=== PATIENT | male | born 1950 | race Two or more races ===

== ENCOUNTER 2018-08-31 10:46 | Emergency (ER) | payer OTHER, MEDICAID ==
[~2018-08-31] VITALS: Ht 177.8 cm; Wt 74.8 kg
[~2018-08-31 10:46] MED LIST: ATOR20TA50 PO; LOSA-49 PO
[2018-08-31 11:29] LABS: Urine Bacteria NONE SEEN /hpf (None Seen); Urine Blood 1+ /uL (Negative); Urine Mucus FEW (None Seen); Urine Specific Gravity 1.019 (1.001-1.035); Urine WBC 7 /hpf (0 - 3)
[2018-08-31 12:00] VITALS: BP 140/83
[2018-08-31] MEDS ORDERED: traMADol HCL 50 MG TAB PO ONE (12:00)
== END 2018-08-31 12:25 | disposition home or self-care (01) ==
LOC: ER 10:46
DX: S30.1XXA Contusion of abdominal wall, initial encounter (principal); M54.9 Dorsalgia, unspecified; I10 Essential (primary) hypertension; E78.5 Hyperlipidemia, unspecified; Z98.890 Other specified postprocedural states; V49.88XA Car occupant (driver) (passenger) injured in other specified transport accidents, initial encounter; Y93.89 Activity, other specified; Y92.488 Other paved roadways as the place of occurrence of the external cause; Y99.8 Other external cause status
CPT/HCPCS: 74176; 81001; 93005

== ENCOUNTER 2018-11-02 12:11 | Emergency (ER) | payer OTHER, MEDICAID ==
[~2018-11-02] VITALS: Ht 175.3 cm; Wt 68.5 kg
[2018-11-02] MEDS ORDERED: SODIUM CHLORIDE 0.9% 1,000 ML IV ONE (13:25)
[2018-11-02 15:36] LABS: Basophils # (auto) 0 uL; Basophils % (auto) 0.9 % (0.0-2.0); Eosinophils # (auto) 0.1 uL; Eosinophils % (auto) 3.7 % (0.0-7.0); Hematocrit 41.9 % (41.0-53.0); Lymphocytes # (auto) 0.3 uL; Lymphocytes % (auto) 10.4 % (10.0-50.0); Mean Corpuscular Hemoglobin 30.4 pg (28.0-32.0); Mean Corpuscular Hgb Conc. 33.3 g/dL (32.0-36.0); Mean Corpuscular Volume 91.4 fL (80.0-100.0); Monocytes # (auto) 0.4 uL; Monocytes % (auto) 15.5 % (0.0-12.0); Neutrophils % (auto) 69.5 % (37.0-80.0); Nucleated Red Blood Cells % 0.3 %; Platelet Count (auto) 111 10^3/uL (140-450); Red Blood Cells 4.59 10^6/uL (4.5-5.90); Red Cell Distribution Width 13.4 % (11.8-14.3); White Blood Cell 2.9 10^3/uL (4.4-10.8)
[2018-11-02 15:48] LABS: Chloride 101 mmol/L (98-107); Potassium 4.2 mmol/L (3.5-5.1); Sodium 131 mmol/L (136-145)
[2018-11-02 15:52] LABS: Alanine Aminotransferase 46 U/L (16-61); Anion Gap 8 (5-15); Aspartate Aminotransferase 67 U/L (15-37); BUN/Creatinine Ratio 16.2; Blood Urea Nitrogen 19 mg/dL (7-18); Calcium 8.9 mg/dL (8.5-10.1); Carbon Dioxide 22 mmol/L (21-32); GFR African American 80 mL/min; GFR Non-African American 66 mL/min; Glucose 86 mg/dL (74-106)
[2018-11-02 15:57] LABS: Alkaline Phosphatase 104 U/L (45-117); Bilirubin, Total 0.5 mg/dL (0.2-1.0); Total Protein 8.9 g/dL (6.4-8.2)
[2018-11-02 17:24] LABS: Urine Bacteria NONE SEEN /hpf (None Seen); Urine Blood Negative /uL (Negative); Urine Specific Gravity 1.016 (1.001-1.035); Urine WBC 1 /hpf (0 - 3)
[2018-11-02 17:59] VITALS: BP 120/80
== END 2018-11-02 18:00 | disposition home or self-care (01) ==
LOC: ER 12:11
DX: N20.0 Calculus of kidney (principal); E86.0 Dehydration; E78.5 Hyperlipidemia, unspecified; I10 Essential (primary) hypertension
CPT/HCPCS: 36415; 71045; 74176; 80053; 81001; 84484; 85025; 93005; 99284; J7030